=== PATIENT | male | born 1965 | race Caucasian/White ===

== ENCOUNTER 2023-12-30 09:18 | Inpatient (IN) | payer OTHER, SELFPAY ==
[2023-12-30] VITALS (17 sets, daily range): BP systolic 117–154; BP diastolic 73–109; BMI 28.0
--- NOTE | 2023-12-30 08:05 | ED.GENMED ---
History of Present Illness
General
Chief Complaint: Chest Pain
Time Seen by Provider: 12/30/23 08:05
History of Present Illness
History of Present Illness:
HPI: Earlier this morning the patient had shortness of breath on the way to work. Around 7 AM today (approximately 1 hour ago) he developed chest tightness sensation. It is described as in the center of the chest. He also broke out into a sweat.
He denies kidney disease and denies dye allergy.
EXAM:
GENERAL: Appears in mild distress
HEENT: Moist oral mucosa
CARDIOVASCULAR: No murmurs, normal heart rate, regular rhythm, No chest wall tenderness
PULMONARY: No respiratory distress, breath sounds are clear and equal
ABDOMEN: Soft with no peritoneal signs, no tenderness
NEUROLOGIC: Excellent strength all extremities, no coordination deficits
PSYCHIATRIC: Appropriate mental status, normal insight and judgement
EXTREMITIES: Nontender, no edema, moves all extremities equally
SKIN: Appears somewhat pale
TIME OF INITIAL ENCOUNTER: 8:02 AM
NUMBER AND COMPLEXITY OF PROBLEMS ADDRESSED AT THE ENCOUNTER
� Chronic conditions affecting care: History of 'cholesterol up-and-down'
� Acute Exacerbation and/or Progression of Chronic Illness: This is an acute problem
� Differential Diagnosis includes: STEMI, non-STEMI
AMOUNT AND/OR COMPLEXITY OF DATA TO BE REVIEWED AND ANALYZED
� I performed an independent evaluation of and my interpretation is:
EKG: Sinus, normal rate, inferior wall ST elevation KS with reciprocal changes in the lateral leads
CT:
X-rays:
Laboratory Studies: White count 11.2, initial troponin 0.326
Other:
� Review of other/old records: No old records available for review in [facility]
� Clinical information was obtained by an independent historian: I spoke to EMS for history
� Prescriptions/Medications Considered but not given:
� Further testing considered but not performed: Consider chest x-ray however decision was made to emergently send patient to the [facility] as they were ready for him shortly after arrival
RISK OF COMPLICATIONS AND/OR MORBIDITY OR MORTALITY OF PATIENT MANAGEMENT
� Social determinants of health affecting care: Lives at home
� Discussion with other providers: I spoke to Dr. Christianson who will meet patient in the [facility] for intervention
� Escalation of care including admission/observation vs risk of discharge considered: The patient was seen immediately upon arrival. He was given Brilinta, heparin in the ED, and was given aspirin 325 mg and 2 nitroglycerin
sublingual by EMS. He has ongoing chest discomfort as of 8:05 AM.
Phy Exam
Physical Exam
Physical Exam:
See HPI
Scores
Heart Score for Chest Pain Patients
STEMI patient?: Not applicable
Course
Orders/Labs/Results
Orders:
Orders
12/30/23
Electrocardiogram (*1) Stat
Reason for Study: Chest Pain
12/30/23 Breakfast
Cholesterol Lowering
At Your Request: Full Participation
Cholesterol Lowering: Sodium, 2 Gram
12/30/23 08:10
CMP [Comprehensive Metabolic Panel] Urgent
Complete Blood Count/No Diff Urgent
Complete Blood Count/With Diff Urgent
Glycohemoglobin (HgbA1c) Urgent
Troponin I Stat
12/30/23 08:28
Heparin 5,000 units .ROUTE .STK-MED ONE
Ticagrelor [Brilinta] 180 mg .ROUTE .STK-MED ONE
12/30/23 08:55
Admit Patient As Directed
Co-Sign Provider:
Level of Care: Inpatient admission
Assign to:: IVU
Physician / Group: RAYMOND/Bennett
Diagnosis: STEMI
Reason for Hospitalization: Inferior STEMI, s/p RCA PCI
Expected length of stay greater than two midnights?: Yes
ELOS- Estimated Length of Stay in days: 2
I certify the patient meets the requirements for IP care: Yes
Echo 2D MMode Color/Doppler Urgent
Reason for Study: Inferior STEMI
Cardiology Consult: Tan Christianson
Electrocardiogram (*1) Urgent
Reason for Study: Other
Other Reason for Exam: s/p intervention
Comment: cbc
Code Status As Directed
Resuscitation Status: Full Code
CARDIAC REHAB CONSULT Routine
Co-Sign Provider:
Type of Cardiac Rehab Referral: Outpatient
Diagnosis: STEMI
Date of Diagnosis/Surgery: 12/30/23
Referring Provider: Kehinde Christianson
Acetaminophen [Tylenol] 650 mg PO Q4HPRN PRN
Morphine Sulfate 2 mg IV Q1HPRN PRN
Oxycodone/Acetaminophen [Percocet 5/325] 1 tablet PO Q4HPRN PRN
Activity As Directed
Activity Level: Out of Bed- Chair
Comment: bed/chair rest for 2 hours then out of bed ad luis felipe
[facility] Procedure As Directed
Cardiac Cath Procedure: percutaneous coronary intervention
Intake/ Output As Directed
Frequency: Per unit guidelines
Notify MD As Directed
Notify physician if: immediately for chest pain or bleeding from access site(s)
Radial Artery Hemostasis Method As Directed
Instructions:: 3 mL out at 2 hour posts placement of band
3 mL out at 2 1/2 hours post placement of band
3 mL out at 3 hours post placement of band
Off at 3 1/2 hours post placement of band
If any oozing or hemotoma occurs:: re-inflate band and call provider
Site Checks As Directed
Check access site for bleeding/hematoma: Yes
Comment: on arrival, Q15min x4, Q30min x2, Q1 hr x2, Q2 hr x2, Q4 hr or per
protocol
Vascular Checks As Directed
Location: distal to access site - pulse check
Frequency: Other
Comment: on arrival, Q15min x4, Q30min x2, Q1 hr x2, Q2 hr x2, Q4 hr or per protocol
Vital Signs As Directed
Frequency: Other
Additional Instructions:: on arrival, Q15min x4, Q30min x2, Q1 hr x2, Q2 hr x2, then Q4 hr or per unit
protocol
PRN Pain Medication Management As Directed
May give lesser potent ordered pain med per pt: Yes
preference::
Protocol:: Medication orders for pain may be administered in a
manner that supports deferring to patient preference
when the pt is:
- Requesting an ordered lesser potent pain medication.
Least to most potent pain medications are defined
as: acetaminophen < NSAID < tramadol < opioids
(morphine, oxycodone, hydromorphone).
- Requesting a lesser dose of the same medication IF
ORDERED.
- Requesting a less intrusive route of administration
if both routes are prescribed by the provider (PO <
IV).
DX Deep Vein Thrombosis Video Routine
12/30/23 08:58
Case Management Consult ONCE
Case Management Consult: Other
Comment: brilinta cost
12/30/23 09:00
0.9% Sodium Chloride 1000 ml [Nss] 1,000 ml IV PER PROTOCOL
Infusion rate in mL/kg/hr:: 1.5
Infusion rate in mL/hr:: 129
Duration of infusion (hours):: 5
12/30/23 09:07
Potassium Chloride [KCl] 40 meq PO NOW STA
12/30/23 14:00
Troponin I Q6H
12/30/23 18:00
Atorvastatin [Lipitor] 80 mg PO QPM
12/30/23 20:00
Troponin I Q6H
Ticagrelor [Brilinta] 90 mg PO BID
12/31/23 02:00
Troponin I Q6H
12/31/23 06:00
Electrocardiogram (*1) IN AM
Reason for Study: Other
Other Reason for Exam: s/p intervention
Comment: cbc
Basic Metabolic Panel IN AM
Cardiovascular Evaluation IN AM
Complete Blood Count/No Diff IN AM
12/31/23 08:00
Troponin I Q6H
Aspirin Chewable [Low Strength Aspirin] 81 mg PO DAILY
12/31/23 18:00
Enoxaparin Sodium [Lovenox] 40 mg SC QPM
01/01/24 06:00
Electrocardiogram (*1) IN AM
Reason for Study: Other
Other Reason for Exam: s/p intervention
Comment: cbc
Basic Metabolic Panel IN AM
Complete Blood Count/No Diff IN AM
Abnormal Lab Results
12/30/23 12/30/23 12/30/23
08:10 08:31 08:44
WBC 11.2 H 10^3/uL
(4.8-10.8)
MCHC 32.6 L g/dL
(33.0-37.0)
MPV 10.5 H fL
(7.4-10.4)
Absolute Lymphs (auto) 5.3 H 10^3/uL
(1.2-3.4)
Absolute Monos (auto) 1.1 H 10^3/uL
(0.1-0.6)
Neutrophils % 40.9 L %
(42.2-75.2)
Monocytes % 9.6 H %
(1.7-9.3)
Potassium 3.4 L mmol/L
(3.5-5.1)
Carbon Dioxide 19 L mmol/L
(22-30)
BUN 23 H mg/dl
(9-20)
Glucose 209 H mg/dl
(70-99)
Troponin I 0.326 H* ng/ml
POC ACT Low Range > 397 H Seconds > 397 H Seconds
(116-155) (116-155)
12/30/23 08:10
12/30/23 08:10
Vital Signs
Initial and Last Documented VS:
Initial Vital Signs
Pulse Resp BP Pulse Ox
106 19 135/93 100
12/30/23 08:02 12/30/23 08:02 12/30/23 08:02 12/30/23 08:02
Last Documented Vital Signs
Temp Pulse Resp BP Pulse Ox
97.6 F 77 18 118/80 100
12/30/23 09:35 12/30/23 10:00 12/30/23 09:35 12/30/23 10:00 12/30/23 10:00
*Critical Care Note
Total Time (30-74mins, 75-104mins- exclusive of procedures): Not Applicable
ED Attending Note
-
Portions of this chart may have been created with voice recognition software.� Occasional wrong word or��sound alike� substitutions may have occurred due to the inherent limitations of voice recognition software.
Discharge Plan
Departure
Patient Disposition: Admit
Date of Disposition: 12/30/23
Time of Disposition: 08:05
Presentation/result/management discussed w/ accepting MD/DO: bennett
Discharge Problem:
Acute ST elevation myocardial infarction (STEMI) of inferior wall
Interventions
Interventions:
*Risk Screen - Suicide Last Done: 12/30/23 08:02
*General Assessment Last Done: 12/30/23 08:02
*Neglect/Abuse Screening Last Done: 12/30/23 08:02
ED- Fall Risk Assessment Last Done: 12/30/23 08:10
*ED COVID-19 Vaccine History Last Done: 12/30/23 08:38
*Nursing Disposition Last Done: 12/30/23 08:10
ED- Cardiac Assessment Last Done: 12/30/23 08:07
Discharge Date and Time
Discharge Date/Time: 12/30/23 08:10
[2023-12-30 08:18] LABS: % Basophils 0.5 % (0-2); % Eosinophils 1.2 % (0-6); % Immature Granulocytes 0.2 % (0-0.5); % Lymphocytes 47.6 % (20.5-51.1); % Monocytes 9.6 % (1.7-9.3); % Neutrophils 40.9 % (42.2-75.2); Absolute Basophils 0.1 10^3/uL (0-0.2); Absolute Eosinophils 0.1 10^3/uL (0-0.7); Absolute Lymphocytes 5.3 10^3/uL (1.2-3.4); Absolute Monocytes 1.1 10^3/uL (0.1-0.6); Absolute Neutrophils 4.6 10^3/uL (1.4-6.5); Hematocrit 44.5 % (39.0-52.0); Hemoglobin 14.5 g/dL (13.0-18.0); Mean Corp Hgb Conc. 32.6 g/dL (33.0-37.0); Mean Corpuscular Hgb 28.6 pg (27.0-31.0); Mean Corpuscular Volume 87.8 fL (80.0-94.0); Mean Platelet Volume 10.5 fL (7.4-10.4); Nucleated Red Blood Cells % 0 % (-); Platelet Count 256 10^3/uL (130-400); Red Blood Cell Count 5.07 10^6/uL (4.70-6.10); Red Cell Dist. Width 13.4 % (11.5-14.5); White Blood Cell Count 11.2 10^3/uL (4.8-10.8)
--- NOTE | 2023-12-30 08:30 | HPS.HSE ---
Family Physician
-
Family Physician: Dr. Martin Becerril, [facility] ([place])
CDY: none prior to admission
Chief Complaint
-
chest pain
History of Present Illness
58 y/o white male, no PMH, no FH CAD, non smoker, rare alcohol use.
Pt was driving to work this morning and developed gerd/indigestion symptoms. When he arrive at work, this progressed to acute onset midsternal chest tightness with associated diaphoresis and dizziness. EMS was called. Prehospital STEMI alert was
called and pt brought to ER. Given 324mg aspirin in ambulance, and subsequently 180mg brilinta and 5000u Heparin in the ER.
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
Medical History
Past Medical History
Past Medical History: Reports None
Past Surgical History: Reports None
Social History
Tobacco: Non-smoker
Alcohol: Occasional
Drug: None
Personal:
Living: With Family
Employment: Employed
Family History
Family History: Not pertinent
Allergies / Home Medications
Allergies reflects when Allergies were last updated in [facility].
Home Medications with original date entered in [facility]
Allergy/Medication List:
NKDA
No meds
Review of Systems
-
History Source: Patient
A 12 point ROS was completed and negative except as noted: Yes
Respiratory: Reports Trouble Breathing (mild dyspnea)
Cardiac: Reports Chest Pain (8/10 on cath table) and Diaphoresis
Physical Exam
Vital Signs
Vital Signs
Pulse Resp BP Pulse Ox
106 19 135/93 100
12/30/23 08:02 12/30/23 08:02 12/30/23 08:02 12/30/23 08:02
PE deferred d/t urgent nature of cath
Physical Exam
General: Well Developed and Appears in Distress
Laboratory Results
-
12/30/23 08:10
Laboratory Tests
12/30/23
08:10
Sodium 135
Potassium 3.4 L
Chloride 104
Carbon Dioxide 19 L
BUN 23 H
Creatinine 0.9
Estimated Creat Clear 92
eGFR > 60.00
Glucose 209 H
Calcium 9.2
Total Bilirubin 0.3
AST 36
ALT 37
Alkaline Phosphatase 72
Total Protein 6.3
Albumin 4.1
Laboratory Tests
12/30/23
08:10
Troponin I 0.326 H*
Data Reviewed
-
Medical Tests (Nuc Med, Echo, EKG etc): Image Personally Visualized and interpreted and Report Reviewed by me
Lab Data: Labs Reviewed by me
Impression/Plan
-
58 y/o white male, no PMH, no FH CAD, non smoker, rare alcohol use.
Pt was driving to work this morning and developed gerd/indigestion symptoms. When he arrive at work, this progressed to acute onset midsternal chest tightness with associated diaphoresis and dizziness. EMS was called. Prehospital STEMI alert was
called and pt brought to ER. Given 324mg aspirin in ambulance, and subsequently 180mg brilinta and 5000u Heparin in the ER.
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
LHC- 100% prox RCA occlusion, s/p PTCA/ETHAN
complex mid LAD/D1 bifurcation lesion, 70-80% at LAD/90% ostial D1
30% ostial LCx, 30% prox OM1
LVGram- severe inferior HK, EF 47%
IMPRESSION/PLAN:
Acute Inferior STEMI
s/p RCA PCI
residual complex LAD/D1 at bifurcation- for staged procedure later this week or early next week
chest pain now down to 4/10
admit IVU/monitor tele
trend troponin to peak- 1st 0.326
echo today- severe inf HK/EF 47% on LVGram
DAPT w/asa, brilinta- CM to check cost
Hold off on beta jeanie, acei for now- will monitor on tele
check lipid profile, new start high intensity statin therapy atorvastatin
cardiac rehab consult
followup at [facility] at d/c
Hypokalemia- 3.4, replace and repeat in AM
[2023-12-30 08:31] LABS: ALT (SGPT) 37 U/L (0-50); AST (SGOT) 36 U/L (17-59); Albumin 4.1 g/dl (3.5-5.0); Alkaline Phosphatase 72 U/L (38-126); Blood Urea Nitrogen 23 mg/dl (9-20); Calcium 9.2 mg/dl (8.4-10.2); Carbon Dioxide 19 mmol/L (22-30); Chloride 104 mmol/L (98-107); Estimated Creatinine Clearance 92 ml/min; Glucose 209 mg/dl (70-99); Potassium 3.4 mmol/L (3.5-5.1); Sodium 135 mmol/L (135-145); Total Bilirubin 0.3 mg/dl (0.2-1.3); Total Protein 6.3 g/dl (6.3-8.2); eGFR > 60.00
--- NOTE | 2023-12-30 08:35 | EDRN ---
Received patient via EMS with c/o 7 out of 10 mid chest pain. Patient stated 'feels tight and like bad indigestion'. Patient stated that he felt SOB this morning around 0430 and went to work. Developed chest pain around 0700. Denies radiation and
nausea. +diaphoresis. Patient received ASA 324mg and NTG SLx2 by EMS. Medicated with Brilinta 180mg PO and Heparin 5000 units IV. Patient taken to physical laboratory assistant. Report given at bedside to physical laboratory assistant RN.
[2023-12-30 08:54] LABS: Troponin I 0.326 ng/ml
--- NOTE | 2023-12-30 09:24 | ITS.CL.CATH ---
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
Cardiac Catheterization
Procedure Report:
CARDIAC CATHETERIZATION REPORT
Date of Procedure: 12/30/2023
Referring: Oni Silva MD ([facility])
Indication: Acute inferior STEMI
HEMODYNAMIC DATA
AO: 139/90
LV: 139/20
LEFT VENTRICULOGRAPHY: Severe inferior hypokinesis with EF 47%
CORONARY ANGIOGRAPHY
Dominance: Right
Left Main: Normal
LAD: There is a complex mid LAD bifurcation lesion involving the mid LAD and first diagonal branch ([place] 1,1,1). The LAD stenosis is 70-80% and the ostial diagonal stenosis is 90% in severity. The remainder of the LAD has trivial luminal disease.
Circumflex: 30% ostial circumflex stenosis with otherwise mild luminal irregularities in the circumflex proper. There is 30% proximal OM1 stenosis
RCA: The RCA is proximally occluded. There is ELENA grade 0 flow distal to the site of occlusion. There are no [id number] collaterals seen.
Angioplasty: At the conclusion the diagnostic study the patient underwent immediate intervention for the IMI with proximal RCA occlusion. Double bolus Integrilin with no infusion was given. He had been given aspirin and Brilinta in the emergency
department. Heparin was used for anticoagulation. A JR4 guide catheter was used. A Hi-Torque floppy wire was easily passed through the occlusion into the distal RCA. This restored enough flow to see the culprit lesion which was followed by a 30
mm segment of mild to moderate RCA disease. Angioplasty with a 3.0 x 15 Euphora to 8 maria victoria was followed by placement of a 4.0 x 12 [place] ETHAN deployed at 14 maria victoria. The angiographic result was outstanding with jain of ELENA grade III flow.
There was some sluggishness in microvascular outflow and the patient was given intracoronary adenosine 72 mcg x 2 doses. Each time he developed pauses up to 2.5 seconds and we opted not to give further drug. He was transferred to the IVU in
improved condition
Closure Device: None-the procedure was performed via the right radial artery. The Elder's test was normal prior to the procedure.
Radiation (mGy): 311
DAP (cm2.Gy): 22.7
Fluoroscopy time: 5.0 minutes
CONCLUSIONS
1: Evolving acute inferior STEMI of approximately 2 hours duration
2: Severe inferior hypokinesis with EF 47%
3. Multivessel CAD as described
4. Successful stenting of proximal RCA thrombotic occlusion using 4.0 x 12 [place] ETHAN with jain of ELENA grade III flow and no residual stenosis at the site of occlusion. There is mild residual mid RCA disease to be treated medically
5. We will discuss options for treatment of the complex bifurcation LAD-D1 disease
Copy to: Tan Christianson MD
Tan Christianson MD, [facility], [facility]
[2023-12-30 09:35] LABS: ACT-LR - POC > 397 Seconds (116-155)
[2023-12-30 09:35] LABS: ACT-LR - POC > 397 Seconds (116-155)
--- NOTE | 2023-12-30 09:38 | CON.CAR ---
Medical History
-
Chief Complaint: CP
History of Present Illness:
See H&P dictated by FRANSISCO Pretty. 58-year-old gentleman 2 hours into acute inferior STEMI [facility] [place], operated by [facility] from ER to [facility] where he underwent angiography followed by proximal RCA stenting. See cath report for details. He has a complex bifurcation
LAD/D1 stenosis which will require some form of treatment. We will discuss options with him. Plan DAPT and routine post AR care.
Allergies / Home Medications
Allergy/AdvReac Type Severity Reaction Status Date / Time
No Known Allergies Allergy Unverified 12/30/23 08:07
Physical Exam
Vital Signs
Pulse Resp BP Pulse Ox
108 20 135/93 98
12/30/23 08:10 12/30/23 08:10 12/30/23 08:10 12/30/23 08:10
Lab Results
12/30/23 08:10
12/30/23 08:10
Troponin I 0.326 ng/ml H* 12/30/23 08:10
--- NOTE | 2023-12-30 09:41 | PTCARENOTE ---
Received pt from cardiac hoisting laborer. VSS. Pt w/ right radial band cath site intact. Pt denies any chest pain or SOB. Will monitor.
--- NOTE | 2023-12-30 10:00 | PTCARENOTE ---
Pt c/o midsternal chest discomfort when taking a deep breathe. Pt states that 'it feels like I have a respiratory problem'. Pt rates this as a 4 out of 10 on pain scale. Nasal cannula oxygen at 3 liters maintained for comfort. Will monitor. VSS.
Meds as ordered.
[2023-12-30] MEDS: NSS 1000 IV (10:03)
[2023-12-30] MEDS: KCL 40 MEQ PO (11:32)
[2023-12-30 12:38] LABS: Glycohemoglobin (HgbA1c) 5.5 % (4.0-5.6)
--- NOTE | 2023-12-30 15:36 | PTCARENOTE ---
Pt continues to c/o 4 out of 10 chest discomfort. These symptoms have remained unchanged since 10 am, post cath. Will monitor.
[2023-12-30] MEDS: MORPHINE SULFATE 2 MG IV (16:02)
--- NOTE | 2023-12-30 16:12 | CM ---
spoke to pt in room, he is prev indep. lives with his and toddler son in a 2 story home with 2 steps to enter. he denies anyt dme's. 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 [facility] was contacted
to see pt and assess if he would qualify for MA.
[2023-12-30] MEDS: LASIX 40 MG IV (16:18)
--- NOTE | 2023-12-30 16:44 | PTCARENOTE ---
Pt given morphine and lasix, per MD order. Pt states that his discomfort has decreased to 2 or 3 out of 10, Will monitor.
--- NOTE | 2023-12-30 16:54 | W.PN.UPDATE ---
Update Note
Progress Note Update
CTSP re: 4/10 chest pain. Pt has had continuous 4/10 cp since post cath, not any worse. He is complaining of some dyspnea/discomfort with deep breaths. SaO2 99% on 3LNC, BP up 130-140s/90s, EKG with evolving inferior SD pattern.
Echo done today- nml LV size, decreased EF 40-45%, inferolat/inferosept HK.
Exam with bibasilar rales, otherwise unremarkable.
Lasix 40mg IV x1 now
Morphine 2mg IV x1 now
Repeat EKG
Will monitor.
--- NOTE | 2023-12-30 17:26 | W.PN.UPDATE ---
Update Note
Progress Note Update
Patient reassessed. Currently comfortable on nasal cannula still has some residual mild chest sensation which has remained unchanged since his cath. ECG shows sinus rhythm with some residual inferior ST elevation consistent with his post cath ECG.
Lungs are clear. As previously noted patient had been given Lasix earlier today. Will continue to monitor response and BP.
[2023-12-30] MEDS: LIPITOR 80 MG PO (17:48)
[2023-12-30] MEDS: BRILINTA 90 MG PO (20:33)
[2023-12-31] VITALS (7 sets, daily range): BP systolic 110–142; BP diastolic 74–94; BMI 26.7
--- NOTE | 2023-12-31 03:53 | PTCARENOTE ---
Assumed care of patient at change of shift. VSS, NSR on monitor. Patient endorses feeling residual chest pain at an improved level of 3/10 and stated he did not want any Tylenol for pain. Right radial site dry/intact. Education provided on
activity restrictions and patient verbalizes understanding. Plan of care discussed with patient. Can make needs known. Call [facility] within reach.
[2023-12-31 03:59] LABS: Hematocrit 46.5 % (39.0-52.0); Hemoglobin 15.2 g/dL (13.0-18.0); Mean Corp Hgb Conc. 32.7 g/dL (33.0-37.0); Mean Corpuscular Hgb 28.8 pg (27.0-31.0); Mean Corpuscular Volume 88.1 fL (80.0-94.0); Mean Platelet Volume 10.5 fL (7.4-10.4); Platelet Count 225 10^3/uL (130-400); Red Blood Cell Count 5.28 10^6/uL (4.70-6.10); Red Cell Dist. Width 13.8 % (11.5-14.5); White Blood Cell Count 12.6 10^3/uL (4.8-10.8)
[2023-12-31 04:37] LABS: Blood Urea Nitrogen 12 mg/dl (9-20); Calcium 9.2 mg/dl (8.4-10.2); Carbon Dioxide 25 mmol/L (22-30); Chloride 104 mmol/L (98-107); Estimated Creatinine Clearance 103 ml/min; Glucose 115 mg/dl (70-99); HDL Cholesterol 45 mg/dl; LDL Cholesterol, Calculated 175 mg/dl; Potassium 4.1 mmol/L (3.5-5.1); Sodium 135 mmol/L (135-145); Total Cholesterol 237 mg/dl (50-199); Triglyceride 89 mg/dl (10-149); Very Low Density Lipoprotein 17 mg/dl (0-30); eGFR > 60.00
--- NOTE | 2023-12-31 09:28 | W.PN.CD ---
Today's Communication / Plan
-
.Conintue DAPT. statin
add low dose beta blcoker and SILVANA as BP tolerates
Impression / Plan
-
.
58 year old male who presetne with acute IMI. Emergent cath and RCA stetning. Residual LAD/D1 disease.
ACUTE IMI
-RCA stenting 12/29
- residual LAD and diagonal disease - timing of tx per SG
- estimated EF 40%
- residual ST elevation
- peak trop 280
-DAPT
- statin
- add low dose betablocker and SILVANA as BP will tolerate
- breathing improved. Off O2. some chest sesation with deep inpiration improved. will monitor
.
Hypercholesterolemia - atorvastatin
CORONARY ANGIOGRAPHY
Dominance: Right
Left Main: Normal
LAD: There is a complex mid LAD bifurcation lesion involving the mid LAD and first diagonal branch ([place] 1,1,1). The LAD stenosis is 70-80% and the ostial diagonal stenosis is 90% in severity. The remainder of the LAD has trivial luminal disease.
Circumflex: 30% ostial circumflex stenosis with otherwise mild luminal irregularities in the circumflex proper. There is 30% proximal OM1 stenosis
RCA: The RCA is proximally occluded. There is ELENA grade 0 flow distal to the site of occlusion. There are no [id number]-[id number] collaterals seen.
Successful stenting of proximal RCA thrombotic occlusion using 4.0 x 12 [place] ETHAN with confucianist of ELENA grade III flow and no residual stenosis at the site of occlusion. There is mild residual mid RCA disease to be treated medically
Physical Exam
Vital Signs/Labs
Vital Signs
Temp Pulse Resp BP Pulse Ox
99 F 104 20 136/92 98
12/31/23 06:50 12/31/23 03:14 12/31/23 06:50 12/31/23 03:14 12/31/23 06:50
12/30/23 12/31/23 01/01/24
06:59 06:59 06:59
Actual Weight 81.9 kg
12/31/23 03:22
12/31/23 03:22
Triglycerides 89 mg/dl (10-149) 12/31/23 03:22
LDL Cholesterol, Calc 175 mg/dl 12/31/23 03:22
VLDL Cholesterol, Calc 17 mg/dl (0-30) 12/31/23 03:22
HDL Cholesterol 45 mg/dl 12/31/23 03:22
LAB Results
12/30/23 12/30/23 12/30/23
08:10 15:14 20:25
Troponin I 0.326 H* 280.000 H* D 198.000 H* D
12/31/23
03:22
Troponin I 123.000 H* D
Physical Exam
Constitutional: No acute distress
Cardiovascular: Rhythm & rate is regular
Respiratory: Respiratory effort normal
GI: Soft
Neuro/Psych: Alert
Other: Cath Site (radial site fine)
Data Reviewed
-
Date of Service: December 31, 2023
Medical Decision Making: External Notes
EKG: Report Reviewed by me
Medical Tests (PFT, Pathology etc): Image Personally Visualized and interpreted
Labs: Labs Reviewed by me
[2023-12-31] MEDS: LOPRESSOR 12.5 MG PO ×2 (09:35→19:49)
[2023-12-31] MEDS: BRILINTA 90 MG PO (09:36)
[2023-12-31] MEDS: LOW STRENGTH ASPIRIN 81 MG PO (09:36)
[2023-12-31] MEDS: LOVENOX 40 MG SC (18:32)
[2023-12-31] MEDS: LIPITOR 80 MG PO (18:32)
[2024-01-01] VITALS (7 sets, daily range): BP systolic 101–128; BP diastolic 72–85; BMI 26.2
--- NOTE | 2024-01-01 02:40 | PTCARENOTE ---
Patient remains NSR on monitor. VSS on RA with no complaints of chest pain or SOB. Ambulating independently without difficulty. Aware of plan of care. Call blackwell within reach.
[2024-01-01 04:14] LABS: % Basophils 0.2 % (0-2); % Eosinophils 0.3 % (0-6); % Immature Granulocytes 0.3 % (0-0.5); % Lymphocytes 20.6 % (20.5-51.1); % Monocytes 10.4 % (1.7-9.3); % Neutrophils 68.2 % (42.2-75.2); Absolute Lymphocytes 2.7 10^3/uL (1.2-3.4); Absolute Monocytes 1.4 10^3/uL (0.1-0.6); Absolute Neutrophils 8.9 10^3/uL (1.4-6.5); Hematocrit 47.9 % (39.0-52.0); Hemoglobin 15.6 g/dL (13.0-18.0); Mean Corp Hgb Conc. 32.6 g/dL (33.0-37.0); Mean Corpuscular Hgb 28.7 pg (27.0-31.0); Mean Corpuscular Volume 88.1 fL (80.0-94.0); Mean Platelet Volume 10.4 fL (7.4-10.4); Nucleated Red Blood Cells % 0 % (-); Platelet Count 230 10^3/uL (130-400); Red Blood Cell Count 5.44 10^6/uL (4.70-6.10); Red Cell Dist. Width 13.7 % (11.5-14.5)
[2024-01-01 04:25] LABS: Blood Urea Nitrogen 17 mg/dl (9-20); Calcium 9.3 mg/dl (8.4-10.2); Carbon Dioxide 28 mmol/L (22-30); Chloride 104 mmol/L (98-107); Estimated Creatinine Clearance 92 ml/min; Glucose 111 mg/dl (70-99); Potassium 4.3 mmol/L (3.5-5.1); Sodium 136 mmol/L (135-145); eGFR > 60.00
[2024-01-01] MEDS: PLAVIX 600 MG PO (08:07)
[2024-01-01] MEDS: LOW STRENGTH ASPIRIN 81 MG PO (08:08)
[2024-01-01] MEDS: LOPRESSOR 12.5 MG PO (08:14)
--- NOTE | 2024-01-01 10:43 | W.PN.CD ---
Today's Communication / Plan
-
Lisinopril given this morning asess response
continue BB, statin, DAPT
follow up CXR
Impression / Plan
-
.
58 year old male who presetne with acute IMI. Emergent cath and RCA stetning. Residual LAD/D1 disease.
ACUTE IMI
-RCA stenting 12/29
- residual LAD and diagonal disease - plan for return for PCI in coule weeks per SG
- estimated EF 40%
- residual ST elevation
- peak trop 280
- feels better
- cath site fine.
-DAPT
- statin
- tolerating betablocker and SILVANA as BP will tolerate
- breathing improved. Off O2. some chest sesation with deep inpiration follow up CXR
.
Hypercholesterolemia - atorvastatin
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 Reviewed issues [facility] interventional . Recommendation is that he does not return to work for 4 weeks
CORONARY ANGIOGRAPHY
Dominance: Right
Left Main: Normal
LAD: There is a complex mid LAD bifurcation lesion involving the mid LAD and first diagonal branch ([place] 1,1,1). The LAD stenosis is 70-80% and the ostial diagonal stenosis is 90% in severity. The remainder of the LAD has trivial luminal disease.
Circumflex: 30% ostial circumflex stenosis with otherwise mild luminal irregularities in the circumflex proper. There is 30% proximal OM1 stenosis
RCA: The RCA is proximally occluded. There is ELENA grade 0 flow distal to the site of occlusion. There are no [id number] collaterals seen.
Successful stenting of proximal RCA thrombotic occlusion using 4.0 x 12 [place] ETHAN with voodoo of ELENA grade III flow and no residual stenosis at the site of occlusion. There is mild residual mid RCA disease to be treated medically
Physical Exam
Vital Signs/Labs
Vital Signs
Temp Pulse Resp BP Pulse Ox
98.3 F 82 18 101/77 96
01/01/24 07:01 01/01/24 08:00 01/01/24 07:01 01/01/24 07:00 01/01/24 07:01
12/31/23 01/01/24 01/02/24
06:59 06:59 06:59
Actual Weight 81.9 kg 80.3 kg
01/01/24 03:48
01/01/24 03:48
Triglycerides 89 mg/dl (10-149) 12/31/23 03:22
LDL Cholesterol, Calc 175 mg/dl 12/31/23 03:22
VLDL Cholesterol, Calc 17 mg/dl (0-30) 12/31/23 03:22
HDL Cholesterol 45 mg/dl 12/31/23 03:22
LAB Results
12/30/23 12/30/23 12/30/23
08:10 15:14 20:25
Troponin I 0.326 H* 280.000 H* D 198.000 H* D
12/31/23 12/31/23
03:22 08:11
Troponin I 123.000 H* D 95.300 H*
Physical Exam
Constitutional: No acute distress
EENT: Anicteric
Cardiovascular: Rhythm & rate is regular
Respiratory: Respiratory effort normal
GI: Soft
Neuro/Psych: Alert
Data Reviewed
-
Date of Service: January 01, 2024
Medical Decision Making: Reviewed Test Results
Echo: Report Reviewed by me
Medical Tests (PFT, Pathology etc): Report Reviewed by me
Labs: Labs Reviewed by me
[2024-01-01] MEDS: ZESTRIL 2.5 MG PO (10:54)
--- NOTE | 2024-01-01 16:13 | W.DS.TRANS ---
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
-
Discharge Instructions:
Discharge Diagnosis/Procedures Inferior STEMI, s/p angioplasty and stent to
Right Coronary artery
Diet Low Cholesterol
Activity No strenuous activity
Additional Activity or heavy lifting greater than 10lbs for 4 weeks
Driving Restrictions No driving for 24 hours
Blood Work Check BMP in 2 weeks
Others Tests You will return for intervention of LAD on 01/19,
make sure to take your Aspirin and Plavix the
morning of procedure. We will call you with
instructions and time the day before.
Other Services Cardiac Rehab
Instructions:
Stand-Alone Forms: DC Instructions- Cath/EP Lab
Return to Work
Changes to Home Medications: Yes
Discharge Medications:
DC Medications w/original date entered in [facility]
aspirin 81 mg chewable tablet 81 mg PO DAILY #1 tab 01/01/24
atorvastatin 80 mg tablet 80 mg PO QPM #90 tabs 01/01/24
clopidogrel 75 mg tablet 75 mg PO DAILY #90 tabs 01/01/24
lisinopril 2.5 mg tablet 2.5 mg PO DAILY #90 tabs 01/01/24
metoprolol succinate 25 mg tablet,extended release 24 hr 25 mg PO DAILY #90 tabs 01/01/24
nitroglycerin 0.4 mg sublingual tablet 0.4 mg sublingual [id number] PRN chest pain #25 tabs 01/01/24
Home Medication Changes
all new meds
Pending Results: No
--- NOTE | 2024-01-01 16:51 | PTCARENOTE ---
pt denies any chest pain or sob. OOB ad luis felipe in the room and hallway. Continues with occas productive cough. Pt sent for a CXR. Pt discharged to home with his son. Discharge instructions given and reviewed with good understanding.
== END 2024-01-01 17:15 | disposition home or self-care (01) | DRG 322 ==
LOC: IVU 09:18
PROVIDERS: Nurse Practitioner; ADMITTING PHYSICIAN Internal Medicine Cardiovascular Disease; EMERGENCY PHYSICIAN Emergency Medicine
PROC: B2111ZZ Fluoroscopy of Multiple Coronary Arteries using Low Osmolar Contrast (ICD-10-PCS; 2023-12-30)
PROC: 027034Z Dilation of Coronary Artery, One Artery with Drug-eluting Intraluminal Device, Percutaneous Approach (ICD-10-PCS; 2023-12-30)
PROC: B2151ZZ Fluoroscopy of Left Heart using Low Osmolar Contrast (ICD-10-PCS; 2023-12-30)
PROC: 4A023N7 Measurement of Cardiac Sampling and Pressure, Left Heart, Percutaneous Approach (ICD-10-PCS; 2023-12-30)
DX: I21.19 ST elevation (STEMI) myocardial infarction involving other coronary artery of inferior wall (principal); I50.20 Unspecified systolic (congestive) heart failure; K21.9 Gastro-esophageal reflux disease without esophagitis; K30 Functional dyspepsia; E87.6 Hypokalemia; E78.00 Pure hypercholesterolemia, unspecified; I25.5 Ischemic cardiomyopathy; I25.10 Atherosclerotic heart disease of native coronary artery without angina pectoris
CPT/HCPCS: 71046; 80048; 80053; 80061; 80069; 83036; 84484; 85025; 85027; 85347; 93005; 93306; 93458; 96374; 99284; C1725; C1769; C1874; C1894; C9606; J0153; J1327; Q9950; Q9967